=== PATIENT | male | born 1990 | race Caucasian/White ===

== ENCOUNTER 2018-06-04 20:16 | Emergency (ER) | payer OTHER ==
[~2018-06-04] VITALS: Ht 175.3 cm; Wt 65.8 kg
[2018-06-04] MEDS ORDERED: CEPHALEXIN500 MG PO (22:14)
== END 2018-06-04 22:25 | disposition home or self-care (01) ==
LOC: ED 20:16
DX: S60.450A Superficial foreign body of right index finger, initial encounter (principal); F17.200 Nicotine dependence, unspecified, uncomplicated; Z23 Encounter for immunization; W45.8XXA Other foreign body or object entering through skin, initial encounter
CPT/HCPCS: 90471; 90715; 99283